=== PATIENT | female | born 1975 | race Caucasian/White ===

== ENCOUNTER 2018-05-27 11:56 | Emergency (ER) | payer BC, MEDICAID ==
[2018-05-27 12:27] LABS: ABS Basophils 0.1 10^3/ul (0-0.2); ABS Eosinophils 0.2 10^3/ul (0-0.6); ABS Lymphocytes 3.6 10^3/ul (1.0-4.8); ABS Monocytes 0.8 10^3/ul (0-0.8); ABS Neutrophils 7.3 10^3/ul (1.5-7.7); ABS Nucleated RBC 0 10^3/ul; Eosinophil % 1.7 %; Hematocrit 35 % (33-41); Hemoglobin 11.9 g/dL (12.0-16.0); Lymphocyte % 29.9 %; Mean Corpuscular HGB Conc 34 g/dL (31-36); Mean Corpuscular Hemoglobin 27 pg (27-31); Mean Corpuscular Volume 80 fL (80-97); Mean Platelet Volume 8.2 fL (7.4-10.4); Nucleated Red Blood Cells % 0; Platelet Count 297 10^3/uL (150-450); Red Blood Count 4.43 10^6 /uL (3.70-4.87); Red Cell Distribution Width 16 % (10.5-15)
[2018-05-27 12:37] LABS: INR 1.03 (0.77-1.02)
[2018-05-27] MEDS ORDERED: Ketorolac INJ* 30 MG/ML 1 ML VIAL IV PUSH ONE (12:40)
[2018-05-27 12:44] LABS: Albumin 4.6 g/dL (3.2-5.2); Albumin/Globulin Ratio 1.6 (1-3); BUN/Creatinine Ratio 14.9 (8-20); EGFR African American 85.6 (>60); EGFR Non-African American 70.7 (>60); Globulin 2.9 g/dL (2-4); Magnesium 1.5 mg/dL (1.9-2.7); Potassium 3.6 mmol/L (3.5-5.0); Total Bilirubin 0.4 mg/dL (0.2-1.0); Total Protein 7.5 g/dL (6.4-8.9)
[2018-05-27 12:50] LABS: HCG Pregnancy 0.88 mIU/mL
[2018-05-27] MEDS ORDERED: LORazepam INJ* 2 MG/ML 1 ML VIAL IV PUSH ONE (12:59)
[2018-05-27] MEDS ORDERED: Famotidine IV* 10 MG/ML 2 ML (20 mg) IV SLOW PU ONE ×2 (14:40→15:37)
[2018-05-27] MEDS ORDERED: Nitroglycerin TAB 0.4 MG* 0.4 MG TAB SL ONE ×2 (14:41→16:29)
[2018-05-27] MEDS ORDERED: NS 0.9% 1000 ML** 1,000 ML IV ONE (14:41)
[2018-05-27] MEDS ORDERED: Lidocaine 2% VISCOUS* 15 ML UDC PO ONE (15:37)
[2018-05-27] MEDS ORDERED: Al Hydrox/Mg Hydrox/Simet LIQ* 30 ML UDC PO ONE (15:37)
[2018-05-27] MEDS ORDERED: HYDROcodone/ACETAMIN 5-325 MG* 1 TAB PO ONE (17:06)
--- NOTE | 2018-05-27 17:06 | ED ---
HPI Chest Pain - HPI Summary HPI Summary: Patient is a 42-year-old female with no history of cardiac disease presenting to the ED with acute onset of midsternal chest pain radiating under the left breast and shooting through to the back. She describes this as stabbing, without any burning sensation or tearing sensation. This was acute onset at approximately 3:30 PM. She was at rest. Symptoms are not worse with exertion or better with rest. Symptoms are not aggravated with positioning. Pain is decreased only slightly with lying flat and worse with sitting upright. She denies a history of CAD or HTN. She denies any shortness of breath, however states she has to breathe more shallowly due to the pain. She thought this was gas at first which is why she did not come to the ED yesterday. She has not tried anything at home for relief. She arrives by EMS and had to 4 mg morphine vials just [employer] without effect. She denies any worsening pain over the last 24 hours, she states the pain is consistent. Denies any abdominal pain, back pain , neck pain, numbness or tingling in the upper or lower extremities, abdominal pain, nausea, vomiting, fevers, sweats, chills or other recent illness. - History of Current Complaint Chief Complaint: EDChestPainROMI Time Seen by Provider: 05/27/18 12:00 Hx Obtained From: Patient Onset/Duration: Started Hours Ago Timing: Constant Initial Severity: Severe Current Severity: Severe Pain Intensity: 9 Pain Scale Used: 0-10 Numeric Chest Pain Location: Mid Sternal Chest Pain Radiates: Yes Chest Pain Radiates To:: Back, Shoulder Aggravating Factor(s): Position - laying flat improves symptoms Alleviating Factor(s): Position Associated Signs and Symptoms: Positive: Chest Pain. Negative: Vision Changes, Anxiety, Recent Stress, Headaches, Numbness, Tingling, Fever, Chills, Lightheadedness, Diaphoresis, Nausea, Calf Pain/Swelling, Vomiting, Nasal Congestion, URI - Risk Factors TAD Risk Factors: Negative - Allergy/Home Medications Allergies/Adverse Reactions: Allergies Allergy/AdvReac Type Severity Reaction Status Date / Time aspirin Allergy Hives/Diff. Verified 05/27/18 12:05 Breathing/I tching latex Allergy Unknown Verified 05/27/18 12:05 Reaction Details nitrofurantoin Allergy Unknown Verified 05/27/18 12:05 [From Macrobid] Reaction Details Home Medications: Home Medications Liraglutide (NF) [Victoza (NF)] 1.2 mg INJ DAILY 05/27/18 [History Confirmed ] Metformin HCl 500 mg PO TID 05/27/18 [History Confirmed 05/27/18] Venlafaxine HCl [Venlafaxine HCl ER] 2 tab PO DAILY 05/27/18 [History Confirmed 05/27/18] PMH/Surg Hx/FS Hx/Imm Hx Previously Healthy: Yes Endocrine/Hematology History: Reports: Hx Diabetes - TYPE 2 Cardiovascular History: Denies: Hx Hypertension, Hx Pacemaker/ICD Respiratory History: Denies: Hx Asthma History: Denies: Hx Dialysis, Hx Renal Disease Sensory History: Denies: Hx Hearing Aid Psychiatric History: Reports: Hx Panic Disorder - INDUCES SEUDOSEIZURES - Cancer History Cancer Type, Location and Year: 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 HYSTERECTOMY 2002. BILATERAL KNEE ARTHROSCOPY. APPENDIX. GALLBLADDER. RT BREAST BIOPSY. - Immunization History Hx Pertussis Vaccination: No Immunizations Up to Date: Yes Infectious Disease History: No Infectious Disease History: Denies: Traveled Outside the [place] in Last 30 Days - Social History Occupation: Employed Full-time Lives: With Family Alcohol Use: None Hx Substance Use: No Substance Use Type: Reports: None Hx Tobacco Use: No Smoking Status (MU): Never Smoked Tobacco Review of Systems Constitutional: Negative Negative: Fever, Chills, Fatigue, Skin Diaphoresis Positive: Chest Pain. Negative: Palpitations Negative: Shortness Of Breath, Cough Negative: Abdominal Pain, Vomiting, Diarrhea, Nausea Skin: Negative Neurological: Negative Negative: Headache, Weakness Psychological: Normal All Other Systems Reviewed And Are Negative: Yes Physical Exam Triage Information Reviewed: Yes Vital Signs On Initial Exam: Initial Vitals Temp Pulse Resp BP Pulse Ox 97.7 F 107 22 145/110 98 05/27/18 11:58 05/27/18 11:58 05/27/18 11:58 05/27/18 11:58 05/27/18 11:58 Vital Signs Reviewed: Yes Appearance: Positive: Well-Appearing, Well-Nourished Skin: Positive: Warm, Skin Color Reflects Adequate Perfusion Head/Face: Positive: Normal Head/Face Inspection Eyes: Positive: Normal, DERRICK, Conjunctiva Clear Neck: Positive: Supple, Nontender Respiratory/Lung Sounds: Positive: Clear to Auscultation, Breath Sounds Present Cardiovascular: Positive: Pulses are Symmetrical in both Upper and Lower Extremities, Tachycardia. Negative: Leg Edema Left, Leg Edema Right Abdomen Description: Positive: Nontender, Soft Bowel Sounds: Positive: Present Musculoskeletal: Positive: Normal, Strength/ROM Intact Neurological: Positive: Speech Normal Psychiatric: Positive: Affect/Mood Appropriate AVPU Assessment: Alert Diagnostics - Vital Signs Vital Signs Temp Pulse Resp BP Pulse Ox 05/27/18 16:03 84 21 143/81 97 05/27/18 16:00 78 20 98 05/27/18 15:33 85 23 113/70 95 05/27/18 15:03 78 14 116/84 96 05/27/18 15:00 74 16 96 05/27/18 14:33 75 17 117/74 96 05/27/18 14:04 70 24 121/84 97 05/27/18 14:03 75 27 96 05/27/18 13:37 33 05/27/18 13:33 94 35 119/66 98 05/27/18 13:03 74 21 119/73 98 05/27/18 13:00 82 33 99 05/27/18 12:33 86 20 124/90 97 05/27/18 12:12 104 24 99 05/27/18 12:03 98 20 145/110 98 05/27/18 11:58 97.7 F 107 22 145/110 98 - Laboratory Lab Results: Lab Results 05/27/18 05/27/18 05/27/18 Range/Units 12:19 12:19 12:19 WBC 12.0 H (3.5-10.8) 10^3/uL RBC 4.43 (3.70-4.87) 10^6 /uL Hgb 11.9 L (12.0-16.0) g/dL Hct 35 (33-41) % MCV 80 (80-97) fL MCH 27 (27-31) pg MCHC 34 (31-36) g/dL RDW 16 H (10.5-15) % Plt Count 297 (150-450) 10^3/uL MPV 8.2 (7.4-10.4) fL Neut % (Auto) 60.9 % Lymph % (Auto) 29.9 % [place] % (Auto) 6.9 % Eos % (Auto) 1.7 % Baso % (Auto) 0.6 % Absolute Neuts (auto) 7.3 (1.5-7.7) 10^3/ul Absolute Lymphs (auto) 3.6 (1.0-4.8) 10^3/ul Absolute Monos (auto) 0.8 (0-0.8) 10^3/ul Absolute Eos (auto) 0.2 (0-0.6) 10^3/ul Absolute Basos (auto) 0.1 (0-0.2) 10^3/ul Absolute Nucleated RBC 0 10^3/ul Nucleated RBC % 0 ESR Pending INR (Anticoag Therapy) 1.03 H (0.77-1.02) D-Dimer, Quantitative < 200 (Less Than 230) ng/mL Sodium 137 (135-145) mmol/L Potassium 3.6 (3.5-5.0) mmol/L Chloride 103 (101-111) mmol/L Carbon Dioxide 23 (22-32) mmol/L Anion Gap 11 (2-11) mmol/L BUN 13 (6-24) mg/dL Creatinine 0.87 (0.51-0.95) mg/dL Est GFR ( Amer) 85.6 (>60) Est GFR (Non-Af Amer) 70.7 (>60) BUN/Creatinine Ratio 14.9 (8-20) Glucose 91 (70-100) mg/dL Lactic Acid (0.5-2.0) mmol/L Calcium 9.0 (8.6-10.3) mg/dL Magnesium 1.5 L (1.9-2.7) mg/dL Total Bilirubin 0.40 (0.2-1.0) mg/dL AST 34 (13-39) U/L ALT 23 (7-52) U/L Alkaline Phosphatase 86 (34-104) U/L Total Creatine Kinase 84 (10-223) U/L Troponin I 0.00 (<0.04) ng/mL Total Protein 7.5 (6.4-8.9) g/dL Albumin 4.6 (3.2-5.2) g/dL Globulin 2.9 (2-4) g/dL Albumin/Globulin Ratio 1.6 (1-3) Amylase 56 (29-103) U/L Lipase 119 H (11.0-82.0) U/L Beta HCG, Quant 0.88 mIU/mL 05/27/18 05/27/18 Range/Units 12:19 15:15 WBC (3.5-10.8) 10^3/uL RBC (3.70-4.87) 10^6 /uL Hgb (12.0-16.0) g/dL Hct (33-41) % MCV (80-97) fL MCH (27-31) pg MCHC (31-36) g/dL RDW (10.5-15) % Plt Count (150-450) 10^3/uL MPV (7.4-10.4) fL Neut % (Auto) % Lymph % (Auto) % [place] % (Auto) % Eos % (Auto) % Baso % (Auto) % Absolute Neuts (auto) (1.5-7.7) 10^3/ul Absolute Lymphs (auto) (1.0-4.8) 10^3/ul Absolute Monos (auto) (0-0.8) 10^3/ul Absolute Eos (auto) (0-0.6) 10^3/ul Absolute Basos (auto) (0-0.2) 10^3/ul Absolute Nucleated RBC 10^3/ul Nucleated RBC % ESR INR (Anticoag Therapy) (0.77-1.02) D-Dimer, Quantitative (Less Than 230) ng/mL Sodium (135-145) mmol/L Potassium (3.5-5.0) mmol/L Chloride (101-111) mmol/L Carbon Dioxide (22-32) mmol/L Anion Gap (2-11) mmol/L BUN (6-24) mg/dL Creatinine (0.51-0.95) mg/dL Est GFR ( Amer) (>60) Est GFR (Non-Af Amer) (>60) BUN/Creatinine Ratio (8-20) Glucose (70-100) mg/dL Lactic Acid 1.7 (0.5-2.0) mmol/L Calcium (8.6-10.3) mg/dL Magnesium (1.9-2.7) mg/dL Total Bilirubin (0.2-1.0) mg/dL AST (13-39) U/L ALT (7-52) U/L Alkaline Phosphatase (34-104) U/L Total Creatine Kinase (10-223) U/L Troponin I 0.00 (<0.04) ng/mL Total Protein (6.4-8.9) g/dL Albumin (3.2-5.2) g/dL Globulin (2-4) g/dL Albumin/Globulin Ratio (1-3) Amylase (29-103) U/L Lipase (11.0-82.0) U/L Beta HCG, Quant mIU/mL Result Diagrams: 05/27/18 12:19 05/27/18 12:19 Lab Statement: Any lab studies that have been ordered have been reviewed, and results considered in the medical decision making process. Chest Pain Course/Dx - Course Course Of Treatment: During the patient's course of treatment, patient is evaluated for mid sternal stabbing chest pain radiating under the left breast and through to the back. She describes this as stabbing and not burning or tearing in sensation. She denies any numbness or tingling to the upper or lower extremities. The symptoms have been present 22 hours, not worsening or improving but remaining consistent. She describes the pain of a 9/10. She denies cardiac history. On arrival, labs are obtained and a chest x-ray is obtained. Labs are WNL except for a slightly elevated white count and a slightly elevated lipase count, however not consistent with pancreatitis. Chest x-ray shows no mediastinal widening or other acute pathologies. On physical examination there are no pulse deficits, no BP differential, no hypotension noted and the ADD-RS score is 1/3. Dimer negative. She continues to have chest pain discomfort so she is given 1 nitroglycerin. This improved her symptoms only slightly from an 8 to a 7. She is subsequently given famotidine, lidocaine and maalox plus. On re-evaluation, ptaient continues to c /o 7/10 pain with no improvement from the medications. She again is given another nitro with again, minimal improvement of sxs. She is given toradol and ativan, again without improvement, but endorses fatigue. Repeat trop 0.00. Repeat EKG shows no changes. Discussed case with Dr. Jernigan. Discussed case with Dr. Ding who recommends home for intractable pain stating will not admit as patient does not require further workup at this time including no echo or stress test needed. Discussed with patient who is agreeable to home. She still endorses pain, however this decreased to 5/10. She is given hydrocodone at this time and will be given rx for this. She understands return precautions and is OK for discharge at this time. - Chest Pain Differential Diagnosis/HQI/PQRI: Acute MN, ACS, Chest Wall - Diagnoses Provider Diagnoses: Chest pain Discharge - Sign-Out/Discharge Documenting (check all that apply): Patient Departure Patient Received Moderate/Deep Sedation with Procedure: No - Discharge Plan Condition: Fair Disposition: HOME Referrals: No Primary Care Phys,NOPCP [Primary Care Provider] - - Billing Disposition and Condition Condition: FAIR Disposition: Home
[2018-05-27 17:23] LABS: Erythrocyte Sed Rate 30 mm/Hr (0-20)
[2018-05-27 17:37] LABS: C Reactive Protein 10.54 mg/L (<8.01)
[2018-05-27 19:10] VITALS: BP 116/79
== END 2018-05-27 19:13 | disposition home or self-care (01) ==
LOC: ED 11:56
DX: R07.89 Other chest pain (principal); R53.83 Other fatigue; R00.0 Tachycardia, unspecified; Z88.6 Allergy status to analgesic agent; Z88.1 Allergy status to other antibiotic agents; Z91.040 Latex allergy status; E11.9 Type 2 diabetes mellitus without complications; Z79.84 Long term (current) use of oral hypoglycemic drugs
CPT/HCPCS: 36415; 71046; 71250; 80053; 82150; 82550; 83605; 83690; 83735; 84484; 84702; 85025; 85379; 85610; 85652; 86140; 93005; 96361; 96374; 96375; 99285; A9270-GY; J1885; J2060

== ENCOUNTER 2018-09-12 14:30 | Emergency (ER) | payer BC ==
--- NOTE | 2018-09-12 17:15 | ED ---
Neck Pain - HPI Summary HPI Summary: 43-year-old female presents with neck pain for the past week. She states that started as spasming in the neck and moved to a stiffness in her neck. States that it is pain to her entire neck. She states she started developing some numbness and tingling into her right arm. States has been some weakness. She thought that it was just her fibromyalgia. She denies any fevers or chills. States has occasional chest pain but is not having any now. She denies any shortness of breath. No headache. No visual changes. - History of Current Complaint Chief Complaint: EDNeckComplaint Stated Complaint: NECK PAIN PER PT Time Seen by Provider: 09/12/18 15:50 Pain Intensity: 10 - Allergies/Home Medications Allergies/Adverse Reactions: Allergies Allergy/AdvReac Type Severity Reaction Status Date / Time aspirin Allergy Hives/Diff. Verified 09/12/18 14:35 Breathing/I tching clavulanic acid Allergy Rash Verified 09/12/18 14:35 [From Timentin] latex Allergy Hives Verified 09/12/18 14:35 nitrofurantoin Allergy Rash Verified 09/12/18 14:35 [From Macrobid] ticarcillin [From Timentin] Allergy Rash Verified 09/12/18 14:35 Home Medications: Home Medications Pioglitazone TAB* [Actos TAB*] 15 mg PO DAILY WITH MEAL 09/12/18 [History Confirmed 09/12/18] PMH/Surg Hx/FS Hx/Imm Hx Endocrine/Hematology History: Reports: Hx Diabetes - TYPE 2 Cardiovascular History: Denies: Hx Hypertension, Hx Pacemaker/ICD Respiratory History: Denies: Hx Asthma History: Denies: Hx Dialysis, Hx Renal Disease Sensory History: Denies: Hx Hearing Aid Psychiatric History: Reports: Hx Panic Disorder - INDUCES SEUDOSEIZURES - Cancer History Cancer Type, Location and Year: 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 HYSTERECTOMY 2002. BILATERAL KNEE ARTHROSCOPY. APPENDIX. GALLBLADDER. RT BREAST BIOPSY. Infectious Disease History: No Infectious Disease History: Denies: Traveled Outside the [place] in Last 30 Days - Family History Known Family History: Positive: Non-Contributory - Social History Alcohol Use: None Hx Substance Use: No Substance Use Type: Reports: None Hx Tobacco Use: No Smoking Status (MU): Never Smoked Tobacco Review of Systems Negative: Fever Negative: Chest Pain Negative: Shortness Of Breath Positive: Myalgia - neck pain Positive: Paresthesia All Other Systems Reviewed And Are Negative: Yes Physical Exam Triage Information Reviewed: Yes Vital Signs On Initial Exam: Initial Vitals Temp Pulse Resp BP Pulse Ox 98.4 F 112 18 140/92 100 09/12/18 14:31 09/12/18 14:31 09/12/18 14:31 09/12/18 14:31 09/12/18 14:31 Vital Signs Reviewed: Yes Appearance: Positive: Well-Appearing Skin: Positive: Warm, Dry Head/Face: Positive: Normal Head/Face Inspection Eyes: Positive: Normal, EOMI, DERRICK, Conjunctiva Clear ENT: Positive: Normal ENT inspection, Pharynx normal, TMs normal Neck: Positive: Other: - tenderness over entire neck, limited ROM neck Respiratory/Lung Sounds: Positive: Clear to Auscultation, Breath Sounds Present Cardiovascular: Positive: Normal, RRR Abdomen Description: Positive: Nontender, Soft Bowel Sounds: Positive: Present Musculoskeletal: Positive: Normal Neurological: Positive: Sensory/Motor Intact, Alert, Oriented to Person Place, Time, CN Intact II-III Psychiatric: Positive: Normal Diagnostics - Vital Signs Vital Signs Temp Pulse Resp BP Pulse Ox 09/12/18 16:28 98 F 100 16 132/89 93 09/12/18 14:31 98.4 F 112 18 140/92 100 - Laboratory Result Diagrams: 09/12/18 18:10 09/12/18 18:10 Lab Statement: Any lab studies that have been ordered have been reviewed, and results considered in the medical decision making process. - CT neck CT Interpretation Completed By: Radiologist Summary of CT Findings: IMPRESSION: No acute findings. - EKG No standard instances Cardiac Rate: NL EKG Rhythm: Sinus Rhythm Summary of EKG Findings: sinus rhythm Re-Evaluation - Re-Evaluation First Eval Re-Evaluation Time: 19:01 Change: Improved Comment: pain better, states mostly like spasm Second Eval Re-Evaluation Time: 19:23 Change: Improved Neck Course/Dx - Course Course Of Treatment: 43-year-old female presents with neck pain for the past week. She states that started as spasming in the neck and moved to a stiffness in her neck. States that it is pain to her entire neck. She states she started developing some numbness and tingling into her right arm. States has been some weakness. She thought that it was just her fibromyalgia. She denies any fevers or chills. States has occasional chest pain but is not having any now. She denies any shortness of breath. No headache. No visual changes. On exam tenderness over her entire neck. Limited range of motion neck due to pain. Biceps reflexes intact. Has equal paper processing machine helper strength. No neuro deficit noted. CT of neck shows no acute findings. wbc elevated. CRP slightly elevated. gave robaxin and is feeling better and able to move neck more. discussed will place on course of robaxin and will have follow up with primary. patient understand and agrees with plan. - Diagnoses Differential Dx/HQI/PQRI: Positive: Cervical Fracture, Dystonia, Sprain Provider Diagnoses: Neck pain Discharge - Sign-Out/Discharge Documenting (check all that apply): Patient Departure Patient Received Moderate/Deep Sedation with Procedure: No - Discharge Plan Condition: Good Disposition: HOME Prescriptions: Methocarbamol TAB* [Robaxin 500 MG TAB*] 750 mg PO TID PRN #[id number] tab PRN Reason: Pain Patient Education Materials: Neck Pain (ED) Referrals: Session Paul POSADAS [Primary Care Provider] - Additional Instructions: Take robaxin three times a day Use Tylenol for pain every 6 hours ice/heat area, move as much as possible Follow up with primary within 5 days Return to ED if develop any new or worsening symptoms - Billing Disposition and Condition Condition: GOOD Disposition: Home
[2018-09-12] MEDS ORDERED: Ketorolac INJ* 30 MG/ML 1 ML VIAL IV PUSH ONE (17:38)
[2018-09-12] MEDS ORDERED: Diazepam TAB(*) 5 MG PO ONE (17:38)
[2018-09-12] MEDS ORDERED: Ketorolac INJ* 30 MG/ML 1 ML VIAL IM ONE (17:55)
[2018-09-12 18:17] LABS: ABS Basophils 0.1 10^3/ul (0-0.2); ABS Eosinophils 0.2 10^3/ul (0-0.6); ABS Lymphocytes 4.6 10^3/ul (1.0-4.8); ABS Monocytes 0.8 10^3/ul (0-0.8); ABS Neutrophils 6.7 10^3/ul (1.5-7.7); Eosinophil % 1.4 %; Hematocrit 35 % (35-47); Hemoglobin 11.8 g/dL (12.0-16.0); Lymphocyte % 37.5 %; Mean Corpuscular HGB Conc 34 g/dL (31-36); Mean Corpuscular Hemoglobin 27 pg (27-31); Mean Corpuscular Volume 79 fL (80-97); Mean Platelet Volume 8.7 fL (7.4-10.4); Platelet Count 291 10^3/uL (150-450); Red Blood Count 4.37 10^6 /uL (3.70-4.87); Red Cell Distribution Width 15 % (10-15); White Blood Count 12.4 10^3/uL (3.5-10.8)
[2018-09-12 18:36] LABS: Albumin 4.6 g/dL (3.2-5.2); Albumin/Globulin Ratio 1.3 (1-3); BUN/Creatinine Ratio 15.6 (8-20); C Reactive Protein 10.02 mg/L (<8.01); Calcium 9.6 mg/dL (8.6-10.3); EGFR African American 81.9 (>60); EGFR Non-African American 67.7 (>60); Globulin 3.5 g/dL (2-4); Potassium 4.1 mmol/L (3.5-5.0); Total Bilirubin 0.3 mg/dL (0.2-1.0); Total Protein 8.1 g/dL (6.4-8.9)
[2018-09-12 18:42] LABS: HCG Pregnancy 0.82 mIU/mL
[2018-09-12] MEDS ORDERED: Methocarbamol TAB* 500 MG PO ONE (19:00)
[2018-09-12] MEDS ORDERED: oxyCODONE/Acetamin 5/325 MG* TAB PO ONE (19:00)
[2018-09-12] MEDS ORDERED: Lidocaine PATCH 5%* 1 PATCH TRANSDERM ONE (19:23)
[2018-09-12 19:45] VITALS: BP 114/92
[2018-09-12] MEDS ORDERED: Lidocaine Patch REMOVE* 1 NOTE MISC SCH (21:00)
== END 2018-09-12 19:44 | disposition home or self-care (01) ==
LOC: ED 14:30
DX: M54.2 Cervicalgia (principal); E11.9 Type 2 diabetes mellitus without complications; Z79.84 Long term (current) use of oral hypoglycemic drugs; Z88.8 Allergy status to other drugs, medicaments and biological substances; Z88.1 Allergy status to other antibiotic agents; Z91.040 Latex allergy status
CPT/HCPCS: 36415; 72125; 80053; 84484; 84702; 85025; 86140; 86618; 96372; 96374; 99282; A9270-GY; J1885

== ENCOUNTER 2019-02-03 10:33 | Emergency (ER) | payer BC ==
--- NOTE | 2019-02-03 11:01 | ED ---
Neck Pain - HPI Summary HPI Summary: This patient is a 43 year old F with a history of fibromyalgia, brain tumor, and diabetes presenting to ED with a chief complaint of neck pain since two weeks ago. Patient fell in the shower about a month ago, hitting her left shoulder. Patient had an XR, which was negative for fracture. The pain went away after the fall, but she reports that the pain has returned within the past two weeks. She describes the pain as radiating down her spine and she also reports numbness, tingling, and throbbing in the bilateral arms and hands that started two weeks ago. Patient has had a chronic problem of left-sided weakness due to her brain tumor, but she feels it is getting worse. The patient rates the pain 9/10 in severity. Symptoms aggravated by nothing. Symptoms alleviated by nothing. Patient has been taking Ibuprofen and Tylenol and using Icy-Hot patches. - History of Current Complaint Chief Complaint: EDNeckComplaint Stated Complaint: NECK PAIN , BACK PAIN , Time Seen by Provider: 02/03/19 10:45 Hx Obtained From: Patient Onset/Duration Of Injury/Symptoms: Weeks - Fall one month ago, pain went away. Pain came back 2 weeks ago Timing: Constant, Lasting Weeks - Since 2 weeks ago Onset/Duration: Gradual Onset, Started weeks ago - Since 2 weeks ago, Still Present, Worse Since Severity Initially: Severe Severity Currently: Severe Pain Intensity: 9 Pain Scale Used: 0-10 Numeric Location: Discrete At: - Neck, Radiates To: - Spine Aggravating Factors: Nothing Alleviating Factors: Nothing Associated Signs & Symptoms: Positive: Weakness - Allergies/Home Medications Allergies/Adverse Reactions: Allergies Allergy/AdvReac Type Severity Reaction Status Date / Time aspirin Allergy Hives/Diff. Verified 02/03/19 10:40 Breathing/I tching clavulanic acid Allergy Rash Verified 02/03/19 10:40 [From Timentin] latex Allergy Hives Verified 02/03/19 10:40 nitrofurantoin Allergy Rash Verified 02/03/19 10:40 [From Macrobid] ticarcillin [From Timentin] Allergy Rash Verified 02/03/19 10:40 PMH/Surg Hx/FS Hx/Imm Hx Endocrine/Hematology History: Reports: Hx Diabetes - TYPE 2 Cardiovascular History: Denies: Hx Hypertension, Hx Pacemaker/ICD Respiratory History: Denies: Hx Asthma History: Denies: Hx Dialysis, Hx Renal Disease Musculoskeletal History: Reports: Hx Fibromyalgia Sensory History: Denies: Hx Hearing Aid Psychiatric History: Reports: Hx Panic Disorder - INDUCES SEUDOSEIZURES - Cancer History Cancer Type, Location and Year: 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 HYSTERECTOMY 2002. BILATERAL KNEE ARTHROSCOPY. APPENDIX. GALLBLADDER. RT BREAST BIOPSY. Infectious Disease History: No Infectious Disease History: Denies: Traveled Outside the [place] in Last 30 Days - Family History Known Family History: Negative: Cardiac Disease, Hypertension, Diabetes - Social History Alcohol Use: None Hx Substance Use: No Substance Use Type: Reports: None Hx Tobacco Use: No Smoking Status (MU): Never Smoked Tobacco Review of Systems Musculoskeletal: Other - Neck pain radiating down spine Neurological: Other - Numbness, tingling, and throbbing in the bilateral upper extremities Positive: Weakness - Chronic left-sided All Other Systems Reviewed And Are Negative: Yes Physical Exam - Summary Physical Exam Summary: Appearance: The patient is well-nourished in no acute distress and in no acute pain. Skin: The skin is warm and dry, and skin color reflects adequate perfusion. HEENT: The head is normocephalic and atraumatic. The pupils are equal and reactive. The conjunctivae are clear and without drainage. Nares are patent and without drainage. Mouth reveals moist mucous membranes, and the throat is without erythema and exudate. The external ears are intact. The ear canals are patent and without drainage. The tympanic membranes are intact. Neck: The neck is supple with full range of motion and non-tender. There are no carotid bruits. There is no neck vein distension. Respiratory: Chest is non-tender. Lungs are clear to auscultation and breath sounds are symmetrical and equal. Cardiovascular: Heart is regular rate and rhythm. There is no murmur or rub auscultated. There is no peripheral edema and pulses are symmetrical and equal. Abdomen: The abdomen is soft and non-tender. There are normal bowel sounds heard in all four quadrants and there is no organomegaly palpated. Musculoskeletal: Tenderness in the cervical midline. Extremities are non-tender with full range of motion. There is good capillary refill. There is no peripheral edema or calf tenderness elicited. Neurological: Patient is alert and oriented to person, place and time. The patient has symmetrical motor strength in all four extremities. Cranial nerves are grossly intact. Deep tendon reflexes are symmetrical and equal in all four extremities. Psychiatric: The patient has an appropriate affect and does not exhibit any anxiety or depression. Triage Information Reviewed: Yes Vital Signs On Initial Exam: Initial Vitals Temp Pulse Resp BP Pulse Ox 97.0 F 104 18 154/111 100 02/03/19 10:35 02/03/19 10:35 02/03/19 10:35 02/03/19 10:35 02/03/19 10:35 Vital Signs Reviewed: Yes Procedures - Sedation Patient Received Moderate/Deep Sedation with Procedure: No Diagnostics - Vital Signs Vital Signs Temp Pulse Resp BP Pulse Ox 02/03/19 10:35 97.0 F 104 18 154/111 100 - Laboratory Lab Statement: Any lab studies that have been ordered have been reviewed, and results considered in the medical decision making process. - CT C-Spine CT Interpretation Completed By: Radiologist Summary of CT Findings: 1. No fracture or traumatic malalignment of the cervical spine. 2. A central disc extrusion at C4-C5 is approximately 2 mm thick. 3. No severe osseous encroachment of the spinal canal or neural foramina. Dr. Ledezma has reviewed this radiology report. Re-Evaluation - Re-Evaluation First Eval Re-Evaluation Time: 12:18 Comment: Discussed results with patient. Patient will be discharged home with dx of cervical radiculopathy. Patient understands and agrees with this plan. Neck Course/Dx - Course Course Of Treatment: Ms. Jensen described cervical radiculopathy on presentation. Her exam was consistent and showed no significant neurological involvement. CT scan was in agreement with a herniated disc. I'm going to give her a steroid burst and recommended follow-up with PCP for potential physical therapy and eventual MRI scan. - Diagnoses Provider Diagnoses: Cervical radiculopathy, Herniated cervical disc Discharge ED - Sign-Out/Discharge Documenting (check all that apply): Patient Departure - Discharge - Discharge Plan Condition: Stable Disposition: HOME Prescriptions: methylPREDNISolone [Medrol Dosepak 4 MG*] 4 mg PO .SEE JOSELYN INSTRUCTION #1 tab Patient Education Materials: Cervical Radiculopathy (ED) Referrals: Session Paul POSADAS [Primary Care Provider] - 3 Days Additional Instructions: Follow up with your primary care provider in 2-3 days. Consider starting physical therapy. PLEASE RETURN TO THE ER FOR WORSENING OR CHANGING SYMPTOMS. It was a pleasure taking care of you today. - Billing Disposition and Condition Condition: STABLE Disposition: Home - Attestation Statements Document Initiated by Garry: Yes Documenting Scribe: Robel Brooke Provider For Whom Garry is Documenting (Include Credential): Tirso Ledezma MD Scribe Attestation: I, Robel Brooke, scribed for Tirso Ledezma MD on 02/03/19 at 1813. Scribe Documentation Reviewed: Yes Provider Attestation: The documentation as recorded by the Robel donnelly accurately reflects the service I personally performed and the decisions made by me, Tirso Ledezma MD Status of Scribe Document: Viewed
[2019-02-03 13:05] VITALS: BP 125/81
== END 2019-02-03 13:00 | disposition home or self-care (01) ==
LOC: ED 10:33
DX: M50.121 Cervical disc disorder at C4-C5 level with radiculopathy (principal); E11.9 Type 2 diabetes mellitus without complications; M79.7 Fibromyalgia; F41.0 Panic disorder [episodic paroxysmal anxiety]; Z90.710 Acquired absence of both cervix and uterus; Z88.0 Allergy status to penicillin; Z88.8 Allergy status to other drugs, medicaments and biological substances; Z88.1 Allergy status to other antibiotic agents; Z91.040 Latex allergy status
CPT/HCPCS: 72125; 99282